=== PATIENT | female | born 1960 | race Caucasian/White ===

== ENCOUNTER 2024-04-12 05:09 | Outpatient (CLI) | payer BC, SELFPAY | END 2024-04-12 05:10 | disposition home or self-care (01) | LOC: AMB 04-13 23:27 | PROVIDERS: Visit Provider Family Medicine | DX: H53.9 Unspecified visual disturbance (principal); R51.9 Headache, unspecified; E66.9 Obesity, unspecified | CPT/HCPCS: A0425; A0427 ==